=== PATIENT | female | born 1945 | race Caucasian/White ===

== ENCOUNTER 2016-07-27 07:49 | Day surgery (SDC) | payer MEDICARE, BC ==
[2016-07-27] MEDS ORDERED: Lactated Ringers 1,000 ML IV SCH (08:45)
[2016-07-27] MEDS ORDERED: Propofol 200 MG/20 ML SDV ONE (08:56)
[2016-07-27] MEDS ORDERED: fentaNYL 100 MCG/2 ML SDV ONE (08:56)
[2016-07-27 10:59] VITALS: BP 129/83
--- NOTE | 2016-07-28 07:24 | OR ---
DATE OF PROCEDURE: 07/28/2015 PREOPERATIVE DIAGNOSIS: Colon cancer screening. POSTOPERATIVE DIAGNOSES: Small distal rectal polyp. PROCEDURE PERFORMED: Colonoscopy to the cecum with biopsy resection of small distal rectal polyp. ANESTHESIA: IV anesthesia with monitored anesthesia care. INDICATION: This 70-year-old white female is referred for a colonoscopy for colon cancer screening. She says her last colonoscopic exam was done 11 years ago. I counseled her for the procedure including risks and alternatives, and she gave her informed consent to proceed. DESCRIPTION OF PROCEDURE: The patient was placed in the left lateral decubitus position. IV anesthesia was administered by the Anesthesia Service. Time-out was held. A rectal exam was performed, which was unremarkable. The flexible video Olympus colonoscope was introduced through her anus, up her rectum, and out her colon all way to the cecum. Once the cecum was reached, the scope was slowly withdrawn examining the mucosa throughout. No mucosal abnormalities were noted until we reached the distal rectum. Here we saw a small polyp, which was removed with a biopsy forceps. The scope was retroflexed in the rectum with the most distal rectum appearing unremarkable. The scope was straightened and removed. She tolerated the procedure well. Kwaku Meadows MD /[id number] MTDDonaldo
== END 2016-07-27 11:20 | disposition home or self-care (01) ==
LOC: JP.SDS 07:49
PROVIDERS: ATTEND Surgery
DX: Z12.11 Encounter for screening for malignant neoplasm of colon (principal); D12.8 Benign neoplasm of rectum
CPT/HCPCS: 45380; 88305; 88342; J2704; J3010; J7120

== ENCOUNTER 2019-09-25 15:30 | Inpatient (IN) | payer MEDICARE ==
--- NOTE | 2019-09-25 16:25 | EDM.PDOC ---
ED HPI GENERAL MEDICAL PROBLEM - General Chief Complaint: Cardiovascular Problem Stated Complaint: SHORTNESS OF BREATH Time Seen by Provider: 09/25/19 16:09 Source of Information: Reports: Patient History Limitations: Reports: No Limitations - History of Present Illness INITIAL COMMENTS - FREE TEXT/NARRATIVE: pt arrived with a history of being very sob with activity and then she gets burning chest pain, When she sits down the burning goes away. Onset: Gradual Duration: Hour(s): Location: Reports: Chest Quality: Reports: Burning Associated Symptoms: Reports: Chest Pain, Shortness of Breath Chest Pain Score (Numeric/FACES): 10 - Related Data Allergies Allergy/AdvReac Type Severity Reaction Status Date / Time No Known Allergies Allergy Verified 09/25/19 15:48 Home Meds: Home Meds Calcium Carbonate/Vitamin D3 [Calcium 600 + Vit D Tablet] 1,000 mg PO DAILY [History] Cranberry 1,000 mg PO Q48H 09/10/14 [History] Albuterol Sulfate [Albuterol Sulfate Hfa] 2 puff IH Q4HR 09/25/19 [History] Alendronate Sodium 10 mg PO DAILY 09/25/19 [History] Aspirin [Ecotrin EC] 81 mg PO DAILY 09/25/19 [History] atenoloL [Atenolol] 25 mg PO DAILY 09/25/19 [History] Past Medical History HEENT History: Reports: Cataract, Impaired Vision Cardiovascular History: Reports: Angina, Hypertension, SOB on Exertion Respiratory History: Reports: None, SOB Other Respiratory History: ? COPD Gastrointestinal History: Reports: Colon Polyp Genitourinary History: Reports: None IN[employer] INSPECTOR History: Reports: Musculoskeletal History: Reports: Osteoporosis Neurological History: Reports: None Psychiatric History: Reports: None Endocrine/Metabolic History: Reports: None Other Endocrine/Metabolic History: "Thyroid might be producing to much hormone" Hematologic History: Reports: None Immunologic History: Reports: None Oncologic (Cancer) History: Reports: None Dermatologic History: Reports: None - Infectious Disease History Infectious Disease History: Reports: Chicken Pox, Mumps - Past Surgical History Head Surgeries/Procedures: Reports: None Cardiovascular Surgical History: Reports: None GI Surgical History: Reports: Colonoscopy, Polypectomy Endocrine Surgical History: Reports: None Other Endocrine Surgeries/Procedures: thyroid ultrasound 09/24/2019 Neurological Surgical History: Reports: None Musculoskeletal Surgical History: Reports: None Oncologic Surgical History: Reports: None Dermatological Surgical History: Reports: None Social & Family History - Family History Family Medical History: Noncontributory - Tobacco Use Smoking Status *Q: Never Smoker - Caffeine Use Caffeine Use: Reports: Coffee Caffeine Use Comment: none for the past week - Recreational Drug Use Recreational Drug Use: No ED ROS GENERAL - Review of Systems Review Of Systems: See Below Constitutional: Reports: No Symptoms HEENT: Reports: No Symptoms Respiratory: Reports: Shortness of Breath, Other (very sob with activity. ) Cardiovascular: Reports: Chest Pain, Other ( after exercise pt gets burning chest pain. ) Endocrine: Reports: Other (history of possible hyperthyroidism. ) GI/Abdominal: Reports: No Symptoms : Reports: No Symptoms Musculoskeletal: Reports: No Symptoms Skin: Reports: No Symptoms Neurological: Reports: No Symptoms Psychiatric: Reports: Anxiety Hematologic/Lymphatic: Reports: No Symptoms ED EXAM, GENERAL - Physical Exam Exam: See Below Free Text/Narrative:: pt arrived with a history of sob with activity. She had an episode today where she felt like she was going to pass out. After she exercises she develops burning chest pain. She has noted that her pulse is quite rapid after exercise. She has not had sustained chest pain. If she rests she states the pain goes away. Exam Limited By: No Limitations General Appearance: Alert, Anxious, Moderate Distress Ears: Normal TMs Nose: Normal Inspection Throat/Mouth: Normal Inspection Head: Atraumatic Neck: Normal Inspection Respiratory/Chest: Decreased Breath Sounds, Other (no definite wheezing. ) Cardiovascular: Regular Rate, Rhythm, Tachycardia GI/Abdominal: Soft, Non-Tender (Female) Exam: Deferred Rectal (Female) Exam: Deferred Back Exam: Normal Inspection Extremities: Normal Inspection Neurological: Alert, Oriented, Normal Cognition Psychiatric: Normal Affect Course - Vital Signs Last Recorded V/S: Last Vital Signs Temp 36.6 C 09/27/19 06:00 Pulse 90 09/27/19 14:50 Resp 16 09/27/19 14:50 BP 113/74 09/27/19 14:50 Pulse Ox 94 L 09/27/19 14:50 Orthostatic Blood Pressure [ 147/90 Standing] Orthostatic Blood Pressure [ 139/92 Sitting] Orthostatic Blood Pressure [ 145/90 Supine] - Orders/Labs/Meds Orders: Medication Orders Acetaminophen (Tylenol) 650 mg PO Q4H PRN PRN Reason: Pain (Mild 1-3)/fever Albuterol (Proventil Neb Soln) 2.5 mg NEB Q4H PRN PRN Reason: Shortness Of Breath/wheezing Aspirin (Halfprin) 81 mg PO DAILY [facility] Last Admin: 09/27/19 08:04 Dose: 81 mg Admin: 09/26/19 08:36 Dose: 81 mg Atenolol (Tenormin) 25 mg PO DAILY [facility] Last Admin: 09/27/19 08:04 Dose: 25 mg Admin: 09/26/19 08:36 Dose: 25 mg Lorazepam (Ativan) 0.5 mg IVPUSH Q4H PRN PRN Reason: Nausea/Vomiting Magnesium Hydroxide (Milk Of Magnesia) 30 ml PO Q12H PRN PRN Reason: Constipation Melatonin (Melatonin) 9 mg PO BEDTIME PRN PRN Reason: sleep Ondansetron HCl (Zofran Odt) 4 mg PO Q6H PRN PRN Reason: Nausea able to take PO Ondansetron HCl (Zofran) 4 mg IV Q6H PRN PRN Reason: Nausea/Vomiting Rivaroxaban (Xarelto) 15 mg PO ONETIME ONE Stop: 09/27/19 19:01 Last Admin: 09/27/19 18:04 Dose: 15 mg Rivaroxaban (Xarelto) 15 mg PO BID [facility] Senna/Docusate Sodium (Senna Plus) 1 tab PO BID PRN PRN Reason: Constipation Sodium Chloride (Saline Flush) 10 ml FLUSH ASDIRECTED PRN PRN Reason: Keep Vein Open Last Admin: 09/25/19 17:14 Dose: 10 ml Labs: Laboratory Tests 09/25/19 09/25/19 09/25/19 Range/Units 16:15 16:16 16:16 WBC 10.3 (4.5-11.0) K/uL RBC 4.17 (3.30-5.50) M/uL Hgb 13.1 (12.0-15.0) g/dL Hct 39.7 (36.0-48.0) % MCV 95 (80-98) fL MCH 31 (27-31) pg MCHC 33 (32-36) % Plt Count 325 (150-400) K/uL Neut % (Auto) 76 H (36-66) % Lymph % (Auto) 14 L (24-44) % [place] % (Auto) 8 H (2-6) % Eos % (Auto) 1 L (2-4) % Baso % (Auto) 2 H (0-1) % PT 12.2 H (9.5-12.0) sec INR 1.14 (0.80-1.20) APTT 25.7 L (27.0-36.0) sec D-Dimer, Quantitative (0.0-400.0) ng/mL Sodium 141 (140-148) mmol/L Potassium 3.7 (3.6-5.2) mmol/L Chloride 107 (100-108) mmol/L Carbon Dioxide 24 (21-32) mmol/L Anion Gap 10.5 (5.0-14.0) mmol/L BUN 22 H (7-18) mg/dL Creatinine 1.1 H (0.6-1.0) mg/dL Est Cr Clr Drug Dosing 36.02 mL/min Estimated GFR (MDRD) 49 L (>60) Glucose 100 (74-106) mg/dL Calcium 8.3 L (8.5-10.1) mg/dL Total Bilirubin 0.4 (0.2-1.0) mg/dL AST 71 H (15-37) U/L ALT 112 H (12-78) U/L Alkaline Phosphatase 102 (46-116) U/L Troponin I (0.000-0.056) ng/mL NT-Pro-B Natriuret Pep (5-125) pg/mL Total Protein 6.3 L (6.4-8.2) g/dL Albumin 3.0 L (3.4-5.0) g/dL Globulin 3.3 (2.3-3.5) g/dL Albumin/Globulin Ratio 0.9 L (1.2-2.2) Free T3 (2.18-3.98) pg/dL TSH, Ultra Sensitive 0.013 L (0.358-3.740) uIU/mL Urine Color (YELLOW) Urine Appearance (CLEAR) Urine pH (5.0-8.0) Ur Specific [place] (1.008-1.030) Urine Protein (NEGATIVE) mg/dL Urine Glucose (UA) (NEGATIVE) mg/dL Urine Ketones (NEGATIVE) mg/dL Urine Occult Blood (NEGATIVE) Urine Nitrite (NEGATIVE) Urine Bilirubin (NEGATIVE) Urine Urobilinogen (0.2-1.0) EU/dL Ur Leukocyte Esterase (NEGATIVE) Urine RBC (0-5) Urine WBC (0-5) Ur Epithelial Cells Amorphous Sediment Urine Bacteria Urine Mucus 09/25/19 09/25/19 09/25/19 Range/Units 16:16 16:25 16:45 WBC (4.5-11.0) K/uL RBC (3.30-5.50) M/uL Hgb (12.0-15.0) g/dL Hct (36.0-48.0) % MCV (80-98) fL MCH (27-31) pg MCHC (32-36) % Plt Count (150-400) K/uL Neut % (Auto) (36-66) % Lymph % (Auto) (24-44) % [place] % (Auto) (2-6) % Eos % (Auto) (2-4) % Baso % (Auto) (0-1) % PT (9.5-12.0) sec INR (0.80-1.20) APTT (27.0-36.0) sec D-Dimer, Quantitative 2920 H (0.0-400.0) ng/mL Sodium (140-148) mmol/L Potassium (3.6-5.2) mmol/L Chloride (100-108) mmol/L Carbon Dioxide (21-32) mmol/L Anion Gap (5.0-14.0) mmol/L BUN (7-18) mg/dL Creatinine (0.6-1.0) mg/dL Est Cr Clr Drug Dosing mL/min Estimated GFR (MDRD) (>60) Glucose (74-106) mg/dL Calcium (8.5-10.1) mg/dL Total Bilirubin (0.2-1.0) mg/dL AST (15-37) U/L ALT (12-78) U/L Alkaline Phosphatase (46-116) U/L Troponin I 0.047 (0.000-0.056) ng/mL NT-Pro-B Natriuret Pep (5-125) pg/mL Total Protein (6.4-8.2) g/dL Albumin (3.4-5.0) g/dL Globulin (2.3-3.5) g/dL Albumin/Globulin Ratio (1.2-2.2) Free T3 (2.18-3.98) pg/dL TSH, Ultra Sensitive (0.358-3.740) uIU/mL Urine Color Yellow (YELLOW) Urine Appearance Clear (CLEAR) Urine pH 5.5 (5.0-8.0) Ur Specific [place] >= 1.030 (1.008-1.030) Urine Protein 30 H (NEGATIVE) mg/dL Urine Glucose (UA) Negative (NEGATIVE) mg/dL Urine Ketones Negative (NEGATIVE) mg/dL Urine Occult Blood Negative (NEGATIVE) Urine Nitrite Negative (NEGATIVE) Urine Bilirubin Negative (NEGATIVE) Urine Urobilinogen 0.2 (0.2-1.0) EU/dL Ur Leukocyte Esterase Trace H (NEGATIVE) Urine RBC Not seen (0-5) Urine WBC 0-5 (0-5) Ur Epithelial Cells Few Amorphous Sediment Few Urine Bacteria Not seen Urine Mucus Not seen 09/25/19 09/25/19 Range/Units 17:00 17:07 WBC (4.5-11.0) K/uL RBC (3.30-5.50) M/uL Hgb (12.0-15.0) g/dL Hct (36.0-48.0) % MCV (80-98) fL MCH (27-31) pg MCHC (32-36) % Plt Count (150-400) K/uL Neut % (Auto) (36-66) % Lymph % (Auto) (24-44) % [place] % (Auto) (2-6) % Eos % (Auto) (2-4) % Baso % (Auto) (0-1) % PT (9.5-12.0) sec INR (0.80-1.20) APTT (27.0-36.0) sec D-Dimer, Quantitative (0.0-400.0) ng/mL Sodium (140-148) mmol/L Potassium (3.6-5.2) mmol/L Chloride (100-108) mmol/L Carbon Dioxide (21-32) mmol/L Anion Gap (5.0-14.0) mmol/L BUN (7-18) mg/dL Creatinine (0.6-1.0) mg/dL Est Cr Clr Drug Dosing mL/min Estimated GFR (MDRD) (>60) Glucose (74-106) mg/dL Calcium (8.5-10.1) mg/dL Total Bilirubin (0.2-1.0) mg/dL AST (15-37) U/L ALT (12-78) U/L Alkaline Phosphatase (46-116) U/L Troponin I (0.000-0.056) ng/mL NT-Pro-B Natriuret Pep 5889 H (5-125) pg/mL Total Protein (6.4-8.2) g/dL Albumin (3.4-5.0) g/dL Globulin (2.3-3.5) g/dL Albumin/Globulin Ratio (1.2-2.2) Free T3 3.85 (2.18-3.98) pg/dL TSH, Ultra Sensitive (0.358-3.740) uIU/mL Urine Color (YELLOW) Urine Appearance (CLEAR) Urine pH (5.0-8.0) Ur Specific [place] (1.008-1.030) Urine Protein (NEGATIVE) mg/dL Urine Glucose (UA) (NEGATIVE) mg/dL Urine Ketones (NEGATIVE) mg/dL Urine Occult Blood (NEGATIVE) Urine Nitrite (NEGATIVE) Urine Bilirubin (NEGATIVE) Urine Urobilinogen (0.2-1.0) EU/dL Ur Leukocyte Esterase (NEGATIVE) Urine RBC (0-5) Urine WBC (0-5) Ur Epithelial Cells Amorphous Sediment Urine Bacteria Urine Mucus Meds: Medications Generic Name Dose Route Start Last Admin Trade Name Freq PRN Reason Stop Dose Admin Acetaminophen 650 mg 09/25/19 18:31 Tylenol PO Q4H PRN Pain (Mild 1-3)/fever Albuterol 2.5 mg 09/25/19 18:31 Proventil Neb Soln NEB Q4H PRN Shortness Of Breath/wheezing Aspirin 81 mg 09/26/19 09:00 09/27/19 08:04 Halfprin PO 81 mg DAILY TENZIN Administration Atenolol 25 mg 09/26/19 09:00 09/27/19 08:04 Tenormin PO 25 mg DAILY [facility]IN Administration Lorazepam 0.5 mg 09/25/19 18:31 Ativan IVPUSH Q4H PRN Nausea/Vomiting Magnesium Hydroxide 30 ml 09/25/19 18:31 Milk Of Magnesia PO Q12H PRN Constipation Melatonin 9 mg 09/25/19 18:31 Melatonin PO BEDTIME PRN sleep Ondansetron HCl 4 mg 09/25/19 18:31 Zofran Odt PO Q6H PRN Nausea able to take PO Ondansetron HCl 4 mg 09/25/19 18:31 Zofran IV Q6H PRN Nausea/Vomiting Rivaroxaban 15 mg 09/27/19 19:00 09/27/19 18:04 Xarelto PO 09/27/19 19:01 15 mg ONETIME ONE Administration Rivaroxaban 15 mg 09/28/19 09:00 Xarelto PO BID [facility]ENZIN Senna/Docusate Sodium 1 tab 09/25/19 18:31 Senna Plus PO BID PRN Constipation Sodium Chloride 10 ml 09/25/19 16:54 09/25/19 17:14 Saline Flush FLUSH 10 ml ASDIRECTED PRN Administration Keep Vein Open Discontinued Medications Generic Name Dose Route Start Last Admin Trade Name Freq PRN Reason Stop Dose Admin Heparin Sodium (Porcine) 4,500 units 09/25/19 17:48 09/25/19 18:01 Heparin Sodium IVPUSH 09/25/19 17:49 4,500 units .BOLUS ONE Administration Heparin Sodium (Porcine) Confirm 09/26/19 07:03 09/26/19 07:17 Heparin Sodium Administered 09/26/19 07:04 Not Given Dose 5,000 units .ROUTE .STK-MED ONE Heparin Sodium (Porcine) 1,000 units 09/26/19 07:07 09/26/19 07:23 Heparin Sodium IVPUSH 09/26/19 07:08 1,000 units .BOLUS ONE Administration Sodium Chloride 100 mls @ 3 mls/sec 09/25/19 17:00 09/25/19 17:14 Normal Saline IV 3 mls/sec ASDIRECTED TENZIN Administration Heparin Sodium/Dextrose 25,000 units in 500 mls @ 20.304 mls/hr 09/25/19 18: 00 09/27/19 07:44 Heparin 25,000 Units In D5w 500 Ml IV 09/27/19 17:00 20 units/kg/hr TITRATE TENZIN 22.56 mls/hr Titration Protocol 18 UNITS/KG/HR Sodium Chloride 1,000 mls @ 25 mls/hr 09/25/19 18:31 09/25/19 21:33 Normal Saline IV 09/27/19 17:00 25 mls/hr ASDIRECTED TENZIN Administration Iopamidol 100 ml 09/25/19 17:15 09/25/19 17:20 Isovue-370 (76%) IV 100 ml . DIRECTED TENZIN Administration - Re-Assessments/Exams Free Text/Narrative Re-Assessment/Exam: 09/25/19 17:31 pt has a low tsh and in the past has been hyperthyroid. She had a recent chest xray which suggested copd. She has a normal trop but slightly borderline. Her ekg shows inverted t waves laterally. She is presently pain free. her ddimer is very high. Her regular Dr did send her here because she had a concern about a PE. Pt does have up liver enzymes. 09/25/19 17:43 lung scan is positive for a high load of clot causing a rt heart strain. She has changes on her ekg with inverted t waves anterolaterally. Her oxgenation is good. pt has been borderline tachcardia. She is comfortable at rest at this time. 09/27/19 18:06 Departure - Departure Time of Disposition: 17:45 Disposition: Home, Self-Care 01 Condition: Fair Clinical Impression: Cardiac ischemia, Dehydration, Hyperthyroidism, Nodular thyroid disease, Elevated liver enzymes Pulmonary emboli Qualifiers: Pulmonary embolism type: multiple subsegmental (without acute cor pulmonale) Qualified Code(s): I26.94 - Multiple subsegmental pulmonary emboli without acute cor pulmonale Sepsis Event Note - Evaluation Sepsis Screening Result: No Definite Risk - Focused Exam Date Exam was Performed: 09/27/19 Time Exam was Performed: 18:08
[2019-09-25] MEDS ORDERED: Sodium Chloride 0.9% 10 ML Syringe FLUSH PRN (16:54)
[2019-09-25] MEDS ORDERED: Iopamidol 612 MG/ML 100 ML Bottle IV SCH (17:00)
[2019-09-25] MEDS ORDERED: Sodium Chloride 0.9% 100 ML IV SCH (17:00)
[2019-09-25] MEDS ORDERED: Iopamidol 755 Mg/ML 100 ML Bottle IV SCH (17:15)
--- NOTE | 2019-09-25 17:40 | CRLCT ---
INDICATION: Dyspnea and chest pain with clinical signs and symptoms of pulmonary embolus. COMPARISON: None TECHNIQUE: : CT examination of the chest was performed with the uneventful intravenous administration of 100 cc of Isovue 3 7 while thin axial sections were obtained from above the apices of the lungs to the lung bases. Please note that all CT scans at this facility use dose modulation, iterative reconstruction, and/or weight-based dosing when appropriate to reduce radiation dose to as low as reasonably achievable. FINDINGS: : HEART and MEDIASTINUM: Heart is mildly enlarged. The right heart is particularly enlarged and there is clearly bowing of the septum to the left and engorgement of the intrahepatic cava consistent with right heart strain PULMONARY ARTERIAL CIRCULATION: High clot burden pulmonary embolus involving all lobes but most affecting the lower lobes. LUNGS: Patchy opacities probably related atelectasis PLEURAL SPACES: There is no pleural effusion, pneumothorax or pleural based mass. VISUALIZED UPPER ABDOMEN: The limited visualized upper abdominal structures appear normal. OSSEOUS STRUCTURES: Age-appropriate appearance. No acute fracture or destructive process. TUBES and LINES: None. IMPRESSION: 1. High clot burden pulmonary embolus involving all lobes but most affecting the lower lobes. 2. Significant-appearing CT findings of right heart strain 3. Aside from patchy atelectasis, the lungs are unremarkable. The pleural spaces are within normal limits. 4. I discussed the above findings with Dr. Shaye Bey at 5:35 p.m. on September 25, [address] note that all CT scans at this facility use dose modulation, iterative reconstruction, and/or weight-based dosing when appropriate to reduce radiation dose to as low as reasonably achievable. Dictated by Rafael Christian MD @ Sep 25 2019 5:33PM Signed by Dr. Rafael Christian @ Sep 25 2019 5:39PM
[2019-09-25] MEDS ORDERED: Heparin Sodium 5,000 Units/ML Vial IVPUSH ONE (17:48)
[2019-09-25] MEDS: Heparin Sodium/D5W 25,000 UNITS/500 ML BAG IV SCH (18:04)
--- NOTE | 2019-09-25 18:24 | PCM.HP.2 ---
H&P History of Present Illness - General Date of Service: 09/25/19 Admit Problem/Dx: Admission Diagnosis/Problem Admission Diagnosis/Problem Pulmonary embolism Source of Information: Patient, Provider History Limitations: Reports: No Limitations - History of Present Illness Initial Comments - Free Text/Narative: CC: i had burning across my chest HPI: Marj presents to the ER with progressive dyspnea with exertion as well as a burning sensation across her chest. She thinks symptoms have been present for several months but they have been slowly getting worse. She is developing the burning sensation and dyspnea with smaller and smaller amounts of activity. Today after climbing 1 flight of stairs she had moderately severe burning pain across her chest as well as significant dyspnea and dizziness and presyncope. Symptoms do resolve fairly quickly when she sits down and takes a break. She has not had any fevers or chills. She has not been coughing. No abdominal pain or nausea. She is being worked up for hyperthyroidism and does note an increase in her essential tremor but has not had weight loss, palpitations, insomnia or anxiety. She has no history of pain in her calf muscles, surgery or prolonged period of immobility. Work-up in the emergency room revealed fairly normal laboratory studies with the exception of her very low TSH. A CT pulmonary angiogram revealed bilateral pulmonary emboli with evidence for right heart strain. A heparin infusion has been started and she will be admitted for further management. Chest Pain Score (Numeric/FACES): 10 - Related Data Allergies/Adverse Reactions: Allergies Allergy/AdvReac Type Severity Reaction Status Date / Time No Known Allergies Allergy Verified 09/25/19 15:48 Home Medications: Home Meds Calcium Carbonate/Vitamin D3 [Calcium 600 + Vit D Tablet] 1,000 mg PO DAILY [History] Cranberry 1,000 mg PO Q48H 09/10/14 [History] Albuterol Sulfate [Albuterol Sulfate Hfa] 2 puff IH Q4HR 09/25/19 [History] Alendronate Sodium 10 mg PO DAILY 09/25/19 [History] Aspirin [Ecotrin EC] 81 mg PO DAILY 09/25/19 [History] atenoloL [Atenolol] 25 mg PO DAILY 09/25/19 [History] Past Medical History HEENT History: Reports: Cataract, Impaired Vision Cardiovascular History: Reports: Angina, Hypertension, SOB on Exertion Respiratory History: Reports: None, SOB Other Respiratory History: ? COPD Gastrointestinal History: Reports: Colon Polyp Genitourinary History: Reports: None BRASS PICKLER History: Reports: Musculoskeletal History: Reports: Osteoporosis Neurological History: Reports: None Other Neuro History: Benign essential tremor Psychiatric History: Reports: None Endocrine/Metabolic History: Reports: None Other Endocrine/Metabolic History: "Thyroid might be producing to much hormone" Hematologic History: Reports: None Immunologic History: Reports: None Oncologic (Cancer) History: Reports: None Dermatologic History: Reports: None - Infectious Disease History Infectious Disease History: Reports: Chicken Pox, Mumps - Past Surgical History Head Surgeries/Procedures: Reports: None Cardiovascular Surgical History: Reports: None GI Surgical History: Reports: Colonoscopy, Polypectomy Endocrine Surgical History: Reports: None Other Endocrine Surgeries/Procedures: thyroid ultrasound 09/24/2019 Neurological Surgical History: Reports: None Musculoskeletal Surgical History: Reports: None Oncologic Surgical History: Reports: None Dermatological Surgical History: Reports: None Social & Family History - Family History Family Medical History: Noncontributory - Tobacco Use Smoking Status *Q: Never Smoker - Caffeine Use Caffeine Use: Reports: Coffee Caffeine Use Comment: none for the past week - Recreational Drug Use Recreational Drug Use: No H&P Review of Systems - Review of Systems: Review Of Systems: See Below Free Text/Narrative: A complete 12 point review of systems was obtained. Pertinent positives and negatives are noted in the history of present illness. All other systems were reviewed and were negative except as noted. Exam - Exam Exam: See Below - Vital Signs Vital Signs: Last Vital Signs Temp 36.1 C 09/25/19 15:36 Pulse 77 09/25/19 17:32 Resp 22 H 09/25/19 17:32 BP 147/88 H 09/25/19 17:32 Pulse Ox 95 09/25/19 17:32 Orthostatic Blood Pressure [ 147/90 Standing] Orthostatic Blood Pressure [ 139/92 Sitting] Orthostatic Blood Pressure [ 145/90 Supine] Weight: 56.4 kg - Exam Quality Assessment: No: Supplemental Oxygen General: Alert, Oriented, Cooperative. No: Mild Distress HEENT: Conjunctiva Clear, Mucosa Moist & Ste[place]. No: Scleral Icterus Neck: Supple, Trachea Midline. No: Lymphadenopathy, Thyromegaly Lungs: Clear to Auscultation, Normal Respiratory Effort Cardiovascular: Regular Rate, Regular Rhythm. No: Systolic Murmur GI/Abdominal Exam: Normal Bowel Sounds, Soft, Non-Tender, No Distention Back Exam: Normal Inspection, Full Range of Motion Extremities: No Pedal Edema. No: Amina's Sign, Increased Warmth Peripheral Pulses: 2+: Dorsalis Pedis (L), Dorsalis Pedis (R) Skin: Warm, Dry Neuro Extensive - Mental Status: Alert, Oriented x3, Nl Response to Commands Neuro Extensive - Motor, Sensory, Reflexes: Tremor. No: Dysarthria, Abnormal Motor Psychiatric: Alert, Normal Affect - Patient Data Lab Results Last 24 hrs: Laboratory Results - last 24 hr 09/25/19 09/25/19 09/25/19 Range/Units 16:15 16:16 16:16 WBC 10.3 (4.5-11.0) K/uL RBC 4.17 (3.30-5.50) M/uL Hgb 13.1 (12.0-15.0) g/dL Hct 39.7 (36.0-48.0) % MCV 95 (80-98) fL MCH 31 (27-31) pg MCHC 33 (32-36) % Plt Count 325 (150-400) K/uL Neut % (Auto) 76 H (36-66) % Lymph % (Auto) 14 L (24-44) % [place] % (Auto) 8 H (2-6) % Eos % (Auto) 1 L (2-4) % Baso % (Auto) 2 H (0-1) % PT 12.2 H (9.5-12.0) sec INR 1.14 (0.80-1.20) APTT 25.7 L (27.0-36.0) sec D-Dimer, Quantitative (0.0-400.0) ng/mL Sodium 141 (140-148) mmol/L Potassium 3.7 (3.6-5.2) mmol/L Chloride 107 (100-108) mmol/L Carbon Dioxide 24 (21-32) mmol/L Anion Gap 10.5 (5.0-14.0) mmol/L BUN 22 H (7-18) mg/dL Creatinine 1.1 H (0.6-1.0) mg/dL Est Cr Clr Drug Dosing 36.02 mL/min Estimated GFR (MDRD) 49 L (>60) Glucose 100 (74-106) mg/dL Calcium 8.3 L (8.5-10.1) mg/dL Total Bilirubin 0.4 (0.2-1.0) mg/dL AST 71 H (15-37) U/L ALT 112 H (12-78) U/L Alkaline Phosphatase 102 (46-116) U/L Troponin I (0.000-0.056) ng/mL NT-Pro-B Natriuret Pep (5-125) pg/mL Total Protein 6.3 L (6.4-8.2) g/dL Albumin 3.0 L (3.4-5.0) g/dL Globulin 3.3 (2.3-3.5) g/dL Albumin/Globulin Ratio 0.9 L (1.2-2.2) Free T3 (2.18-3.98) pg/dL TSH, Ultra Sensitive 0.013 L (0.358-3.740) uIU/mL Urine Color (YELLOW) Urine Appearance (CLEAR) Urine pH (5.0-8.0) Ur Specific [place] (1.008-1.030) Urine Protein (NEGATIVE) mg/dL Urine Glucose (UA) (NEGATIVE) mg/dL Urine Ketones (NEGATIVE) mg/dL Urine Occult Blood (NEGATIVE) Urine Nitrite (NEGATIVE) Urine Bilirubin (NEGATIVE) Urine Urobilinogen (0.2-1.0) EU/dL Ur Leukocyte Esterase (NEGATIVE) Urine RBC (0-5) Urine WBC (0-5) Ur Epithelial Cells Amorphous Sediment Urine Bacteria Urine Mucus 09/25/19 09/25/19 09/25/19 Range/Units 16:16 16:25 16:45 WBC (4.5-11.0) K/uL RBC (3.30-5.50) M/uL Hgb (12.0-15.0) g/dL Hct (36.0-48.0) % MCV (80-98) fL MCH (27-31) pg MCHC (32-36) % Plt Count (150-400) K/uL Neut % (Auto) (36-66) % Lymph % (Auto) (24-44) % [place] % (Auto) (2-6) % Eos % (Auto) (2-4) % Baso % (Auto) (0-1) % PT (9.5-12.0) sec INR (0.80-1.20) APTT (27.0-36.0) sec D-Dimer, Quantitative 2920 H (0.0-400.0) ng/mL Sodium (140-148) mmol/L Potassium (3.6-5.2) mmol/L Chloride (100-108) mmol/L Carbon Dioxide (21-32) mmol/L Anion Gap (5.0-14.0) mmol/L BUN (7-18) mg/dL Creatinine (0.6-1.0) mg/dL Est Cr Clr Drug Dosing mL/min Estimated GFR (MDRD) (>60) Glucose (74-106) mg/dL Calcium (8.5-10.1) mg/dL Total Bilirubin (0.2-1.0) mg/dL AST (15-37) U/L ALT (12-78) U/L Alkaline Phosphatase (46-116) U/L Troponin I 0.047 (0.000-0.056) ng/mL NT-Pro-B Natriuret Pep (5-125) pg/mL Total Protein (6.4-8.2) g/dL Albumin (3.4-5.0) g/dL Globulin (2.3-3.5) g/dL Albumin/Globulin Ratio (1.2-2.2) Free T3 (2.18-3.98) pg/dL TSH, Ultra Sensitive (0.358-3.740) uIU/mL Urine Color Yellow (YELLOW) Urine Appearance Clear (CLEAR) Urine pH 5.5 (5.0-8.0) Ur Specific [place] >= 1.030 (1.008-1.030) Urine Protein 30 H (NEGATIVE) mg/dL Urine Glucose (UA) Negative (NEGATIVE) mg/dL Urine Ketones Negative (NEGATIVE) mg/dL Urine Occult Blood Negative (NEGATIVE) Urine Nitrite Negative (NEGATIVE) Urine Bilirubin Negative (NEGATIVE) Urine Urobilinogen 0.2 (0.2-1.0) EU/dL Ur Leukocyte Esterase Trace H (NEGATIVE) Urine RBC Not seen (0-5) Urine WBC 0-5 (0-5) Ur Epithelial Cells Few Amorphous Sediment Few Urine Bacteria Not seen Urine Mucus Not seen 09/25/19 09/25/19 Range/Units 17:00 17:07 WBC (4.5-11.0) K/uL RBC (3.30-5.50) M/uL Hgb (12.0-15.0) g/dL Hct (36.0-48.0) % MCV (80-98) fL MCH (27-31) pg MCHC (32-36) % Plt Count (150-400) K/uL Neut % (Auto) (36-66) % Lymph % (Auto) (24-44) % [place] % (Auto) (2-6) % Eos % (Auto) (2-4) % Baso % (Auto) (0-1) % PT (9.5-12.0) sec INR (0.80-1.20) APTT (27.0-36.0) sec D-Dimer, Quantitative (0.0-400.0) ng/mL Sodium (140-148) mmol/L Potassium (3.6-5.2) mmol/L Chloride (100-108) mmol/L Carbon Dioxide (21-32) mmol/L Anion Gap (5.0-14.0) mmol/L BUN (7-18) mg/dL Creatinine (0.6-1.0) mg/dL Est Cr Clr Drug Dosing mL/min Estimated GFR (MDRD) (>60) Glucose (74-106) mg/dL Calcium (8.5-10.1) mg/dL Total Bilirubin (0.2-1.0) mg/dL AST (15-37) U/L ALT (12-78) U/L Alkaline Phosphatase (46-116) U/L Troponin I (0.000-0.056) ng/mL NT-Pro-B Natriuret Pep 5889 H (5-125) pg/mL Total Protein (6.4-8.2) g/dL Albumin (3.4-5.0) g/dL Globulin (2.3-3.5) g/dL Albumin/Globulin Ratio (1.2-2.2) Free T3 3.85 (2.18-3.98) pg/dL TSH, Ultra Sensitive (0.358-3.740) uIU/mL Urine Color (YELLOW) Urine Appearance (CLEAR) Urine pH (5.0-8.0) Ur Specific [place] (1.008-1.030) Urine Protein (NEGATIVE) mg/dL Urine Glucose (UA) (NEGATIVE) mg/dL Urine Ketones (NEGATIVE) mg/dL Urine Occult Blood (NEGATIVE) Urine Nitrite (NEGATIVE) Urine Bilirubin (NEGATIVE) Urine Urobilinogen (0.2-1.0) EU/dL Ur Leukocyte Esterase (NEGATIVE) Urine RBC (0-5) Urine WBC (0-5) Ur Epithelial Cells Amorphous Sediment Urine Bacteria Urine Mucus Result Diagrams: 09/25/19 16:16 09/25/19 16:16 Imaging Impressions Last 24 hrs: CT pulmonary angiogram-images personally reviewed-bilateral pulmonary emboli with right heart strain. No saddle embolus. No mass, infiltrate or effusion. EKG INTERPRETATION EKG Date: 09/25/19 Rhythm: NSR Rate (Beats/Min): 88 [place]: LAD-Left [place] Deviation (LAFB) P-Wave: Present QRS: Normal ST-T: Normal EKG Interpretation Comments: inverted T waves in III and aVF as well as V3-V6. image personally reviewed Sepsis Event Note - Evaluation Sepsis Screening Result: No Definite Risk - Focused Exam Vital Signs: Vital Signs Temp Pulse Resp BP Pulse Ox 09/25/19 17:32 77 22 H 147/88 H 95 09/25/19 16:34 85 19 143/99 H 94 L 09/25/19 15:36 36.1 C 100 22 H 159/97 H 97 Date Exam was Performed: 09/25/19 Time Exam was Performed: 18:53 *Q Meaningful Use (ADM) - VTE Risk Assess *Q Each Risk Factor Represents 1 Point: None Total Score 1 Point Risk Factors: 0 Each Risk Factor Represents 2 Points: Age 60 - 74 Years Total Score 2 Point Risk Factors: 2 Each Risk Factor Represents 3 Points: History of DVT/PE Total Score 3 Point Risk Factors: 3 Each Risk Factor Represents 5 Points: None Total Score 5 Point Risk Factors: 0 Venous Thromboembolism Risk Factor Score *Q: 5 - Problem List (1) Pulmonary emboli SNOMED Code(s): 34916298 ICD Code: I26.99 - OTHER PULMONARY EMBOLISM WITHOUT ACUTE COR PULMONALE Status: Acute Current Visit: Yes Qualifiers: Pulmonary embolism type: multiple subsegmental (without acute cor pulmonale) Qualified Code(s): I26.94 - Multiple subsegmental pulmonary emboli without acute cor pulmonale (2) Hyperthyroidism SNOMED Code(s): 23653795 ICD Code: E05.90 - THYROTOXICOSIS, UNSP WITHOUT THYROTOXIC CRISIS OR STORM Status: Acute Current Visit: Yes Problem List Initiated/Reviewed/Updated: Yes Orders Last 24hrs: Active Orders 24 hr Category Date Time Status Patient Status Manage Transfer [TRANSFER] Routine ADT 09/25/19 18:17 Ordered EKG Documentation Completion [RC] ASDIRECTED Care 09/25/19 16:33 Active Orthostatic Vital Signs [RC] ASDIRECTED Care 09/25/19 16:28 Active Heparin Sodium/D5W [Heparin 25,000 Units in D5W 500 ML] Med 09/25/19 18:00 Active 25,000 units in 500 ml IV TITRATE Iopamidol [Isovue-370 (76%)] Med 09/25/19 17:15 Active 100 ml IV . DIRECTED Sodium Chloride 0.9% [Normal Saline] 100 ml Med 09/25/19 17:00 Active IV ASDIRECTED Sodium Chloride 0.9% [Saline Flush] Med 09/25/19 16:54 Active 10 ml FLUSH ASDIRECTED PRN Resuscitation Status Routine Resus Stat 09/25/19 18:18 Ordered EKG 12 Lead [EK] Routine Ther 09/25/19 16:33 Ordered Medication Orders Sodium Chloride (Normal Saline) 100 mls @ 3 mls/sec IV ASDIRECTED TENZIN Last Admin: 09/25/19 17:14 Dose: 3 mls/sec Heparin Sodium/Dextrose (Heparin 25,000 Units In D5w 500 Ml) 25,000 units in 500 mls @ 20.304 mls/hr IV TITRATE TENZIN; Protocol Last Admin: 09/25/19 18:04 Dose: 18 units/kg/hr, 20.304 mls/hr Iopamidol (Isovue-370 (76%)) 100 ml IV . DIRECTED TENZIN Last Admin: 09/25/19 17:20 Dose: 100 ml Sodium Chloride (Saline Flush) 10 ml FLUSH ASDIRECTED PRN PRN Reason: Keep Vein Open Last Admin: 09/25/19 17:14 Dose: 10 ml Assessment/Plan Comment:: ASSESSMENT AND PLAN - Bilateral pulmonary emboli-complicated by evidence for right heart strain on CT scan. Surprisingly her blood pressure is normal and her heart rate is only borderline tachycardic. Symptoms have been present for quite some time but worsening. Unclear if this is acute on chronic or if she now has acute pulmonary emboli on top of a chronic stable angina. I suspect that the clots have been present for some time but increasing in quantity. No history of DVT either personally or in her family. -Heparin infusion per protocol -Transition to oral medication in 48 hours -Cardiac monitoring -Pulse oximetry Hypothyroidism-very recently diagnosed and work-up is still in progress. Outpatient records will need to be reviewed to see if there is additional work- up necessary during the hospital stay. She does not have significant symptoms at this time other than a tremor. -Continue beta-miladys Maintenance issues - - DVT prophylaxis -heparin infusion - GI prophylaxis -not indicated - Nutrition -regular diet - [place] catheter -not indicated CODE STATUS -full code Admission justification -this patient will be admitted for inpatient services and is medically appropriate meeting medical necessity for inpatient admission as outlined in my documentation. I reasonably expect the patient will require inpatient services that span a period time over 2 midnights. I reasonably expect this patient to be discharged or transferred within 96 hours after admission to the [facility]. Disposition -I would anticipate discharge home after the hospital stay Primary care physician -Dr. Kateryna Diaz M.D. - Mortality Measure Prognosis:: Good
[2019-09-25] MEDS ORDERED: Acetaminophen 325 MG Tab PO PRN (18:31)
[2019-09-25] MEDS ORDERED: Albuterol 0.083% 2.5 MG/3 ML Neb Soln NEB PRN (18:31)
[2019-09-25] MEDS ORDERED: Melatonin 3 MG Tab PO PRN (18:31)
[2019-09-25] MEDS ORDERED: Magnesium Hydroxide 400 MG/5 ML Susp 30 ML Cup PO PRN (18:31)
[2019-09-25] MEDS ORDERED: Sodium Chloride 0.9% 1,000 ML IV SCH (18:31)
[2019-09-25] MEDS ORDERED: Ondansetron 4 MG/2 ML SDV IV PRN (18:31)
[2019-09-25] MEDS ORDERED: LORazepam 2 MG/ML SDV IVPUSH PRN (18:31)
[2019-09-25] MEDS ORDERED: Ondansetron 4 MG Tab.DIS PO PRN (18:31)
[2019-09-26] MEDS ORDERED: Heparin Sodium 5,000 Units/ML Vial ONE (07:03)
[2019-09-26] MEDS ORDERED: Heparin Sodium 5,000 Units/ML Vial IVPUSH ONE (07:07)
[2019-09-26] MEDS: Atenolol 25 MG Tab PO SCH (08:36)
[2019-09-26] MEDS: Aspirin 81 MG Tab.EC PO SCH (08:36)
--- NOTE | 2019-09-26 09:32 | PCM.PN ---
- General Info Date of Service: 09/26/19 Subjective Update: No acute events overnight. Vital signs have been stable. Tolerating heparin infusion so far with no evidence for bleeding. Minimal activity around the room does lead to dyspnea but she has not had any burning chest pain. No nausea. Vital signs are all stable. Appetite has been good. Functional Status: Reports: Pain Controlled, Ambulating - Review of Systems Cardiovascular: Reports: Dyspnea on Exertion. Denies: Chest Pain - Patient Data Vitals - Most Recent: Last Vital Signs Temp 36.2 C 09/26/19 08:00 Pulse 91 09/26/19 08:36 Resp 24 H 09/26/19 08:00 BP 127/82 09/26/19 08:36 Pulse Ox 93 L 09/26/19 08:00 Orthostatic Blood Pressure [ 147/90 Standing] Orthostatic Blood Pressure [ 139/92 Sitting] Orthostatic Blood Pressure [ 145/90 Supine] Weight - Most Recent: 59.421 kg I&O - Last 24 Hours: Intake & Output 09/25/19 09/26/19 09/26/19 22:59 06:59 14:59 Intake Total 60 637 Output Total 300 300 Balance -240 337 Lab Results Last 24 Hours: Laboratory Results - last 24 hr 09/25/19 09/25/19 09/25/19 Range/Units 16:15 16:16 16:16 WBC 10.3 (4.5-11.0) K/uL RBC 4.17 (3.30-5.50) M/uL Hgb 13.1 (12.0-15.0) g/dL Hct 39.7 (36.0-48.0) % MCV 95 (80-98) fL MCH 31 (27-31) pg MCHC 33 (32-36) % Plt Count 325 (150-400) K/uL Neut % (Auto) 76 H (36-66) % Lymph % (Auto) 14 L (24-44) % Cassia % (Auto) 8 H (2-6) % Eos % (Auto) 1 L (2-4) % Baso % (Auto) 2 H (0-1) % PT 12.2 H (9.5-12.0) sec INR 1.14 (0.80-1.20) APTT 25.7 L (27.0-36.0) sec D-Dimer, Quantitative (0.0-400.0) ng/mL Sodium 141 (140-148) mmol/L Potassium 3.7 (3.6-5.2) mmol/L Chloride 107 (100-108) mmol/L Carbon Dioxide 24 (21-32) mmol/L Anion Gap 10.5 (5.0-14.0) mmol/L BUN 22 H (7-18) mg/dL Creatinine 1.1 H (0.6-1.0) mg/dL Est Cr Clr Drug Dosing 36.02 mL/min Estimated GFR (MDRD) 49 L (>60) Glucose 100 (74-106) mg/dL Calcium 8.3 L (8.5-10.1) mg/dL Total Bilirubin 0.4 (0.2-1.0) mg/dL AST 71 H (15-37) U/L ALT 112 H (12-78) U/L Alkaline Phosphatase 102 (46-116) U/L Troponin I (0.000-0.056) ng/mL NT-Pro-B Natriuret Pep (5-125) pg/mL Total Protein 6.3 L (6.4-8.2) g/dL Albumin 3.0 L (3.4-5.0) g/dL Globulin 3.3 (2.3-3.5) g/dL Albumin/Globulin Ratio 0.9 L (1.2-2.2) Free T3 (2.18-3.98) pg/dL TSH, Ultra Sensitive 0.013 L (0.358-3.740) uIU/mL Urine Color (YELLOW) Urine Appearance (CLEAR) Urine pH (5.0-8.0) Ur Specific [place] (1.008-1.030) Urine Protein (NEGATIVE) mg/dL Urine Glucose (UA) (NEGATIVE) mg/dL Urine Ketones (NEGATIVE) mg/dL Urine Occult Blood (NEGATIVE) Urine Nitrite (NEGATIVE) Urine Bilirubin (NEGATIVE) Urine Urobilinogen (0.2-1.0) EU/dL Ur Leukocyte Esterase (NEGATIVE) Urine RBC (0-5) Urine WBC (0-5) Ur Epithelial Cells Amorphous Sediment Urine Bacteria Urine Mucus 09/25/19 09/25/19 09/25/19 Range/Units 16:16 16:25 16:45 WBC (4.5-11.0) K/uL RBC (3.30-5.50) M/uL Hgb (12.0-15.0) g/dL Hct (36.0-48.0) % MCV (80-98) fL MCH (27-31) pg MCHC (32-36) % Plt Count (150-400) K/uL Neut % (Auto) (36-66) % Lymph % (Auto) (24-44) % Cassia % (Auto) (2-6) % Eos % (Auto) (2-4) % Baso % (Auto) (0-1) % PT (9.5-12.0) sec INR (0.80-1.20) APTT (27.0-36.0) sec D-Dimer, Quantitative 2920 H (0.0-400.0) ng/mL Sodium (140-148) mmol/L Potassium (3.6-5.2) mmol/L Chloride (100-108) mmol/L Carbon Dioxide (21-32) mmol/L Anion Gap (5.0-14.0) mmol/L BUN (7-18) mg/dL Creatinine (0.6-1.0) mg/dL Est Cr Clr Drug Dosing mL/min Estimated GFR (MDRD) (>60) Glucose (74-106) mg/dL Calcium (8.5-10.1) mg/dL Total Bilirubin (0.2-1.0) mg/dL AST (15-37) U/L ALT (12-78) U/L Alkaline Phosphatase (46-116) U/L Troponin I 0.047 (0.000-0.056) ng/mL NT-Pro-B Natriuret Pep (5-125) pg/mL Total Protein (6.4-8.2) g/dL Albumin (3.4-5.0) g/dL Globulin (2.3-3.5) g/dL Albumin/Globulin Ratio (1.2-2.2) Free T3 (2.18-3.98) pg/dL TSH, Ultra Sensitive (0.358-3.740) uIU/mL Urine Color Yellow (YELLOW) Urine Appearance Clear (CLEAR) Urine pH 5.5 (5.0-8.0) Ur Specific [place] >= 1.030 (1.008-1.030) Urine Protein 30 H (NEGATIVE) mg/dL Urine Glucose (UA) Negative (NEGATIVE) mg/dL Urine Ketones Negative (NEGATIVE) mg/dL Urine Occult Blood Negative (NEGATIVE) Urine Nitrite Negative (NEGATIVE) Urine Bilirubin Negative (NEGATIVE) Urine Urobilinogen 0.2 (0.2-1.0) EU/dL Ur Leukocyte Esterase Trace H (NEGATIVE) Urine RBC Not seen (0-5) Urine WBC 0-5 (0-5) Ur Epithelial Cells Few Amorphous Sediment Few Urine Bacteria Not seen Urine Mucus Not seen 09/25/19 09/25/19 09/25/19 Range/Units 17:00 17:07 23:58 WBC (4.5-11.0) K/uL RBC (3.30-5.50) M/uL Hgb (12.0-15.0) g/dL Hct (36.0-48.0) % MCV (80-98) fL MCH (27-31) pg MCHC (32-36) % Plt Count (150-400) K/uL Neut % (Auto) (36-66) % Lymph % (Auto) (24-44) % Cassia % (Auto) (2-6) % Eos % (Auto) (2-4) % Baso % (Auto) (0-1) % PT (9.5-12.0) sec INR (0.80-1.20) APTT 78.6 H (27.0-36.0) sec D-Dimer, Quantitative (0.0-400.0) ng/mL Sodium (140-148) mmol/L Potassium (3.6-5.2) mmol/L Chloride (100-108) mmol/L Carbon Dioxide (21-32) mmol/L Anion Gap (5.0-14.0) mmol/L BUN (7-18) mg/dL Creatinine (0.6-1.0) mg/dL Est Cr Clr Drug Dosing mL/min Estimated GFR (MDRD) (>60) Glucose (74-106) mg/dL Calcium (8.5-10.1) mg/dL Total Bilirubin (0.2-1.0) mg/dL AST (15-37) U/L ALT (12-78) U/L Alkaline Phosphatase (46-116) U/L Troponin I (0.000-0.056) ng/mL NT-Pro-B Natriuret Pep 5889 H (5-125) pg/mL Total Protein (6.4-8.2) g/dL Albumin (3.4-5.0) g/dL Globulin (2.3-3.5) g/dL Albumin/Globulin Ratio (1.2-2.2) Free T3 3.85 (2.18-3.98) pg/dL TSH, Ultra Sensitive (0.358-3.740) uIU/mL Urine Color (YELLOW) Urine Appearance (CLEAR) Urine pH (5.0-8.0) Ur Specific [place] (1.008-1.030) Urine Protein (NEGATIVE) mg/dL Urine Glucose (UA) (NEGATIVE) mg/dL Urine Ketones (NEGATIVE) mg/dL Urine Occult Blood (NEGATIVE) Urine Nitrite (NEGATIVE) Urine Bilirubin (NEGATIVE) Urine Urobilinogen (0.2-1.0) EU/dL Ur Leukocyte Esterase (NEGATIVE) Urine RBC (0-5) Urine WBC (0-5) Ur Epithelial Cells Amorphous Sediment Urine Bacteria Urine Mucus 09/26/19 09/26/19 09/26/19 Range/Units 06:25 06:25 06:25 WBC 9.7 (4.5-11.0) K/uL RBC 4.15 (3.30-5.50) M/uL Hgb 12.8 (12.0-15.0) g/dL Hct 39.6 (36.0-48.0) % MCV 95 (80-98) fL MCH 31 (27-31) pg MCHC 32 (32-36) % Plt Count 324 (150-400) K/uL Neut % (Auto) (36-66) % Lymph % (Auto) (24-44) % Cassia % (Auto) (2-6) % Eos % (Auto) (2-4) % Baso % (Auto) (0-1) % PT (9.5-12.0) sec INR (0.80-1.20) APTT 49.7 H (27.0-36.0) sec D-Dimer, Quantitative (0.0-400.0) ng/mL Sodium 141 (140-148) mmol/L Potassium 4.0 (3.6-5.2) mmol/L Chloride 108 (100-108) mmol/L Carbon Dioxide 23 (21-32) mmol/L Anion Gap 10.5 (5.0-14.0) mmol/L BUN 15 (7-18) mg/dL Creatinine 1.0 (0.6-1.0) mg/dL Est Cr Clr Drug Dosing 39.63 mL/min Estimated GFR (MDRD) 54 L (>60) Glucose 101 (74-106) mg/dL Calcium 8.4 L (8.5-10.1) mg/dL Total Bilirubin (0.2-1.0) mg/dL AST (15-37) U/L ALT (12-78) U/L Alkaline Phosphatase (46-116) U/L Troponin I (0.000-0.056) ng/mL NT-Pro-B Natriuret Pep (5-125) pg/mL Total Protein (6.4-8.2) g/dL Albumin (3.4-5.0) g/dL Globulin (2.3-3.5) g/dL Albumin/Globulin Ratio (1.2-2.2) Free T3 (2.18-3.98) pg/dL TSH, Ultra Sensitive (0.358-3.740) uIU/mL Urine Color (YELLOW) Urine Appearance (CLEAR) Urine pH (5.0-8.0) Ur Specific [place] (1.008-1.030) Urine Protein (NEGATIVE) mg/dL Urine Glucose (UA) (NEGATIVE) mg/dL Urine Ketones (NEGATIVE) mg/dL Urine Occult Blood (NEGATIVE) Urine Nitrite (NEGATIVE) Urine Bilirubin (NEGATIVE) Urine Urobilinogen (0.2-1.0) EU/dL Ur Leukocyte Esterase (NEGATIVE) Urine RBC (0-5) Urine WBC (0-5) Ur Epithelial Cells Amorphous Sediment Urine Bacteria Urine Mucus Med Orders - Current: Current Medications Acetaminophen (Tylenol) 650 mg PO Q4H PRN PRN Reason: Pain (Mild 1-3)/fever Albuterol (Proventil Neb Soln) 2.5 mg NEB Q4H PRN PRN Reason: Shortness Of Breath/wheezing Aspirin (Halfprin) 81 mg PO DAILY [facility] Last Admin: 09/26/19 08:36 Dose: 81 mg Atenolol (Tenormin) 25 mg PO DAILY [facility] Last Admin: 09/26/19 08:36 Dose: 25 mg Heparin Sodium/Dextrose (Heparin 25,000 Units In D5w 500 Ml) 25,000 units in 500 mls @ 20.304 mls/hr IV TITRATE T[facility]ZIN; Protocol Last Titration: 09/26/19 07:05 Dose: 18 units/kg/hr, 20.304 mls/hr Sodium Chloride (Normal Saline) 1,000 mls @ 25 mls/hr IV ASDIRECTED [facility] Last Admin: 09/25/19 21:33 Dose: 25 mls/hr Lorazepam (Ativan) 0.5 mg IVPUSH Q4H PRN PRN Reason: Nausea/Vomiting Magnesium Hydroxide (Milk Of Magnesia) 30 ml PO Q12H PRN PRN Reason: Constipation Melatonin (Melatonin) 9 mg PO BEDTIME PRN PRN Reason: sleep Ondansetron HCl (Zofran Odt) 4 mg PO Q6H PRN PRN Reason: Nausea able to take PO Ondansetron HCl (Zofran) 4 mg IV Q6H PRN PRN Reason: Nausea/Vomiting Senna/Docusate Sodium (Senna Plus) 1 tab PO BID PRN PRN Reason: Constipation Sodium Chloride (Saline Flush) 10 ml FLUSH ASDIRECTED PRN PRN Reason: Keep Vein Open Last Admin: 09/25/19 17:14 Dose: 10 ml Discontinued Medications Heparin Sodium (Porcine) (Heparin Sodium) 4,500 units IVPUSH .BOLUS ONE Stop: 09/25/19 17:49 Last Admin: 09/25/19 18:01 Dose: 4,500 units Heparin Sodium (Porcine) (Heparin Sodium) Confirm Administered Dose 5,000 units .ROUTE .STK-MED ONE Stop: 09/26/19 07:04 Last Admin: 09/26/19 07:17 Dose: Not Given Heparin Sodium (Porcine) (Heparin Sodium) 1,000 units IVPUSH .BOLUS ONE Stop: 09/26/19 07:08 Last Admin: 09/26/19 07:23 Dose: 1,000 units Sodium Chloride (Normal Saline) 100 mls @ 3 mls/sec IV ASDIRECTED [facility] Last Admin: 09/25/19 17:14 Dose: 3 mls/sec Iopamidol (Isovue-370 (76%)) 100 ml IV . DIRECTED [facility] Last Admin: 09/25/19 17:20 Dose: 100 ml - Exam Quality Assessment: No: Supplemental Oxygen General: Alert, Oriented, Cooperative, No Acute Distress Lungs: Normal Respiratory Effort Cardiovascular: Regular Rate, Regular Rhythm GI/Abdominal Exam: Soft, No Distention Extremities: No Pedal Edema Psy/Mental Status: Alert, Normal Affect Sepsis Event Note - Evaluation Sepsis Screening Result: No Definite Risk - Focused Exam Vital Signs: Vital Signs Temp Pulse Pulse Resp BP BP Pulse Ox 09/26/19 08:36 91 127/82 09/26/19 08:00 36.2 C 82 24 H 127/82 93 L 09/26/19 06:00 24 H 135/91 H 92 L 09/26/19 04:00 36.4 C 24 H 134/84 91 L 09/26/19 02:00 22 H 139/84 92 L 09/26/19 00:00 37.1 C 23 H 133/93 H 92 L 09/25/19 22:00 22 H 128/83 93 L Date Exam was Performed: 09/26/19 Time Exam was Performed: 14:58 - Problem List & Annotations (1) Pulmonary emboli SNOMED Code(s): 50059096 Code(s): I26.99 - OTHER PULMONARY EMBOLISM WITHOUT ACUTE COR PULMONALE Status: Acute Current Visit: Yes Qualifiers: Pulmonary embolism type: multiple subsegmental (without acute cor pulmonale) Qualified Code(s): I26.94 - Multiple subsegmental pulmonary emboli without acute cor pulmonale (2) Hyperthyroidism SNOMED Code(s): 73222060 Code(s): E05.90 - THYROTOXICOSIS, UNSP WITHOUT THYROTOXIC CRISIS OR STORM Status: Acute Current Visit: Yes - Problem List Review Problem List Initiated/Reviewed/Updated: Yes - My Orders Last 24 Hours: My Active Orders 09/25/19 18:00 Heparin Sodium/D5W [Heparin 25,000 Units in D5W 500 ML] 25,000 units in 500 ml IV TITRATE 09/25/19 18:18 Resuscitation Status Routine 09/25/19 18:31 Patient Status [ADT] Routine Bedrest Bathroom Privileges [RC] ASDIRECTED Cardiac Monitoring [RC] CONTINUOUS Intake and Output [RC] QSHIFT Notify Provider Vital Signs [RC] ASDIRECTED Oxygen Therapy [RC] PRN Pulse Oximetry [RC] CONTINUOUS RT Aerosol Therapy [RC] ASDIRECTED Vital Signs [RC] Q2HR Acetaminophen [Tylenol] 650 mg PO Q4H PRN Albuterol [Proventil Neb Soln] 2.5 mg NEB Q4H PRN Docusate Sodium/Sennosides [Senna Plus] 1 tab PO BID PRN LORazepam [Ativan] 0.5 mg IVPUSH Q4H PRN Magnesium Hydroxide [Milk of Magnesia] 30 ml PO Q12H PRN Melatonin 9 mg PO BEDTIME PRN Ondansetron [Zofran ODT] 4 mg PO Q6H PRN Ondansetron [Zofran] 4 mg IV Q6H PRN Sodium Chloride 0.9% [Normal Saline] 1,000 ml IV ASDIRECTED 09/25/19 Dinner Regular Diet [DIET] 09/26/19 09:00 Aspirin [Halfprin] 81 mg PO DAILY atenoloL [Tenormin] 25 mg PO DAILY 09/26/19 13:00 PTT,PARTIAL THROMBOPLSTIN TIME [COAG] Routine - Plan Plan:: ASSESSMENT AND PLAN - Bilateral pulmonary emboli-complicated by evidence for right heart strain on CT scan. Clinically doing well. Still borderline tachycardic but otherwise her vital signs are stable. -Heparin infusion per protocol until Monday afternoon -Transition to rivaroxaban Monday, plan for 6 months of therapy -Cardiac monitoring -Pulse oximetry Hypothyroidism-very recently diagnosed and work-up is still in progress. Outpatient records will need to be reviewed to see if there is additional work- up necessary during the hospital stay. She does not have significant symptoms at this time other than a tremor. -Continue beta-miladys Maintenance issues - - DVT prophylaxis -heparin infusion - GI prophylaxis -not indicated - Nutrition -regular diet Disposition -I would anticipate discharge home after the hospital stay Primary care physician -Dr. Kateryna Diaz M.D.
[2019-09-26] MEDS: Heparin Sodium/D5W 25,000 UNITS/500 ML BAG IV SCH (19:31)
[2019-09-27] MEDS: Aspirin 81 MG Tab.EC PO SCH (08:04)
[2019-09-27] MEDS: Atenolol 25 MG Tab PO SCH (08:04)
--- NOTE | 2019-09-27 09:50 | PCM.PN ---
- General Info Date of Service: 09/27/19 Subjective Update: No acute events overnight. Heart rate has slowly improved and is now in the 70s. She does still have some dyspnea with exertion but this seems to be getting better. She has not had any chest pain. No bleeding issues with the heparin infusion. No fevers. Functional Status: Reports: Pain Controlled, Tolerating Diet - Review of Systems Cardiovascular: Reports: Dyspnea on Exertion - Patient Data Vitals - Most Recent: Last Vital Signs Temp 36.6 C 09/27/19 06:00 Pulse 87 09/27/19 08:04 Resp 22 H 09/27/19 06:00 BP 127/87 09/27/19 08:04 Pulse Ox 95 09/27/19 06:00 Orthostatic Blood Pressure [ 147/90 Standing] Orthostatic Blood Pressure [ 139/92 Sitting] Orthostatic Blood Pressure [ 145/90 Supine] Weight - Most Recent: 59.421 kg I&O - Last 24 Hours: Intake & Output 09/26/19 09/27/19 09/27/19 22:59 06:59 14:59 Intake Total 1357 Output Total 200 250 Balance 1157 -250 Lab Results Last 24 Hours: Laboratory Results - last 24 hr 09/26/19 09/26/19 09/27/19 Range/Units 13:10 19:08 07:00 APTT 55.9 H 58.0 H 49.3 H (27.0-36.0) sec Med Orders - Current: Current Medications Acetaminophen (Tylenol) 650 mg PO Q4H PRN PRN Reason: Pain (Mild 1-3)/fever Albuterol (Proventil Neb Soln) 2.5 mg NEB Q4H PRN PRN Reason: Shortness Of Breath/wheezing Aspirin (Halfprin) 81 mg PO DAILY [facility] Last Admin: 09/27/19 08:04 Dose: 81 mg Atenolol (Tenormin) 25 mg PO DAILY [facility] Last Admin: 09/27/19 08:04 Dose: 25 mg Heparin Sodium/Dextrose (Heparin 25,000 Units In D5w 500 Ml) 25,000 units in 500 mls @ 20.304 mls/hr IV TITRATE T[facility]ZIN; Protocol Last Titration: 09/27/19 07:44 Dose: 20 units/kg/hr, 22.56 mls/hr Sodium Chloride (Normal Saline) 1,000 mls @ 25 mls/hr IV ASDIRECTED [facility] Last Admin: 09/25/19 21:33 Dose: 25 mls/hr Lorazepam (Ativan) 0.5 mg IVPUSH Q4H PRN PRN Reason: Nausea/Vomiting Magnesium Hydroxide (Milk Of Magnesia) 30 ml PO Q12H PRN PRN Reason: Constipation Melatonin (Melatonin) 9 mg PO BEDTIME PRN PRN Reason: sleep Ondansetron HCl (Zofran Odt) 4 mg PO Q6H PRN PRN Reason: Nausea able to take PO Ondansetron HCl (Zofran) 4 mg IV Q6H PRN PRN Reason: Nausea/Vomiting Senna/Docusate Sodium (Senna Plus) 1 tab PO BID PRN PRN Reason: Constipation Sodium Chloride (Saline Flush) 10 ml FLUSH ASDIRECTED PRN PRN Reason: Keep Vein Open Last Admin: 09/25/19 17:14 Dose: 10 ml Discontinued Medications Heparin Sodium (Porcine) (Heparin Sodium) 4,500 units IVPUSH .BOLUS ONE Stop: 09/25/19 17:49 Last Admin: 09/25/19 18:01 Dose: 4,500 units Heparin Sodium (Porcine) (Heparin Sodium) Confirm Administered Dose 5,000 units .ROUTE .STK-MED ONE Stop: 09/26/19 07:04 Last Admin: 09/26/19 07:17 Dose: Not Given Heparin Sodium (Porcine) (Heparin Sodium) 1,000 units IVPUSH .BOLUS ONE Stop: 09/26/19 07:08 Last Admin: 09/26/19 07:23 Dose: 1,000 units Sodium Chloride (Normal Saline) 100 mls @ 3 mls/sec IV ASDIRECTED [facility] Last Admin: 09/25/19 17:14 Dose: 3 mls/sec Iopamidol (Isovue-370 (76%)) 100 ml IV . DIRECTED [facility] Last Admin: 09/25/19 17:20 Dose: 100 ml - Exam Quality Assessment: No: Supplemental Oxygen General: Alert, Oriented, Cooperative, No Acute Distress Lungs: Normal Respiratory Effort Cardiovascular: Regular Rate, Regular Rhythm GI/Abdominal Exam: Soft, No Distention Extremities: No Pedal Edema Psy/Mental Status: Alert, Normal Affect Sepsis Event Note - Evaluation Sepsis Screening Result: No Definite Risk - Focused Exam Vital Signs: Vital Signs Temp Pulse Pulse Resp BP BP Pulse Ox 09/27/19 08:04 87 127/87 09/27/19 06:00 36.6 C 75 22 H 132/85 95 09/27/19 04:00 74 25 H 136/84 96 09/27/19 02:00 74 20 130/87 96 09/27/19 00:00 72 23 H 139/87 94 L 09/26/19 23:30 09/26/19 22:00 79 22 H 117/77 93 L Pulse Ox 09/27/19 08:04 09/27/19 06:00 09/27/19 04:00 09/27/19 02:00 09/27/19 00:00 09/26/19 23:30 94 L 09/26/19 22:00 Date Exam was Performed: 09/27/19 Time Exam was Performed: 13:35 - Problem List & Annotations (1) Pulmonary emboli SNOMED Code(s): 66767674 Code(s): I26.99 - OTHER PULMONARY EMBOLISM WITHOUT ACUTE COR PULMONALE Status: Acute Current Visit: Yes Qualifiers: Pulmonary embolism type: multiple subsegmental (without acute cor pulmonale) Qualified Code(s): I26.94 - Multiple subsegmental pulmonary emboli without acute cor pulmonale (2) Hyperthyroidism SNOMED Code(s): 31422517 Code(s): E05.90 - THYROTOXICOSIS, UNSP WITHOUT THYROTOXIC CRISIS OR STORM Status: Acute Current Visit: Yes - Problem List Review Problem List Initiated/Reviewed/Updated: Yes - My Orders Last 24 Hours: My Active Orders 09/26/19 09:00 Aspirin [Halfprin] 81 mg PO DAILY atenoloL [Tenormin] 25 mg PO DAILY 09/27/19 14:00 PTT,PARTIAL THROMBOPLSTIN TIME [COAG] Routine 09/27/19 19:00 Rivaroxaban [Xarelto] 15 mg PO BID 09/28/19 05:00 BASIC METABOLIC PANEL,BMP [CHEM] Timed CBC W/O DIFF,HEMOGRAM [HEME] Timed (1) - Plan Plan:: ASSESSMENT AND PLAN - Bilateral pulmonary emboli-complicated by evidence for right heart strain on CT scan. Clinically doing well and heart rate slowly improving. -Heparin infusion per protocol until 5 PM tonight -Transition to rivaroxaban this evening (15 mg BIDx20 days then 20 mg daily x5 months) -Discontinue cardiac monitoring and pulse oximetry Hypothyroidism-very recently diagnosed and work-up is still in progress. Outpatient records will need to be reviewed to see if there is additional work- up necessary during the hospital stay. She does not have significant symptoms at this time other than a tremor. -Continue beta-miladys Maintenance issues - - DVT prophylaxis -heparin infusion - GI prophylaxis -not indicated - Nutrition -regular diet Disposition -I would anticipate discharge home after the hospital stay Primary care physician -Dr. Kateryna Diaz M.D.
[2019-09-27] MEDS ORDERED: Rivaroxaban 15 MG Tab PO SCH (10:30)
[2019-09-27] MEDS ORDERED: Rivaroxaban 15 MG Tab PO ONE (19:00)
[2019-09-28] MEDS: Atenolol 25 MG Tab PO SCH (08:12)
[2019-09-28] MEDS: Rivaroxaban 15 MG Tab PO SCH ×2 (08:12→20:53)
[2019-09-28] MEDS: Aspirin 81 MG Tab.EC PO SCH (08:12)
--- NOTE | 2019-09-28 13:47 | PCM.PN ---
- General Info Date of Service: 09/28/19 Subjective Update: No acute events overnight. Vital signs have been stable. She tolerated the transition to oral anticoagulation yesterday. No bleeding issues. No shortness of breath at rest but she does have dyspnea with exertion. She has not had any chest pain. She does feel a little lightheaded after she has been up and walking around. - Review of Systems Cardiovascular: Reports: Dyspnea on Exertion. Denies: Chest Pain - Patient Data Vitals - Most Recent: Last Vital Signs Temp 37.3 C 09/28/19 10:25 Pulse 69 09/28/19 10:25 Resp 16 09/28/19 10:25 BP 125/74 09/28/19 10:25 Pulse Ox 94 L 09/28/19 10:25 Orthostatic Blood Pressure [ 147/90 Standing] Orthostatic Blood Pressure [ 139/92 Sitting] Orthostatic Blood Pressure [ 145/90 Supine] Weight - Most Recent: 59.421 kg I&O - Last 24 Hours: Intake & Output 09/27/19 09/28/19 09/28/19 22:59 06:59 14:59 Intake Total 500 360 Balance 500 360 Lab Results Last 24 Hours: Laboratory Results - last 24 hr 09/27/19 09/28/19 09/28/19 Range/Units 13:52 04:15 04:15 WBC 10.2 (4.5-11.0) K/uL RBC 4.12 (3.30-5.50) M/uL Hgb 12.9 (12.0-15.0) g/dL Hct 39.9 (36.0-48.0) % MCV 97 (80-98) fL MCH 31 (27-31) pg MCHC 32 (32-36) % Plt Count 326 (150-400) K/uL APTT 60.4 H (27.0-36.0) sec Sodium 142 (140-148) mmol/L Potassium 4.3 (3.6-5.2) mmol/L Chloride 109 H (100-108) mmol/L Carbon Dioxide 26 (21-32) mmol/L Anion Gap 11.3 (5.0-14.0) mmol/L BUN 11 (7-18) mg/dL Creatinine 1.1 H (0.6-1.0) mg/dL Est Cr Clr Drug Dosing 36.02 mL/min Estimated GFR (MDRD) 49 L (>60) Glucose 94 (74-106) mg/dL Calcium 8.4 L (8.5-10.1) mg/dL Med Orders - Current: Current Medications Acetaminophen (Tylenol) 650 mg PO Q4H PRN PRN Reason: Pain (Mild 1-3)/fever Albuterol (Proventil Neb Soln) 2.5 mg NEB Q4H PRN PRN Reason: Shortness Of Breath/wheezing Aspirin (Halfprin) 81 mg PO DAILY [facility] Last Admin: 09/28/19 08:12 Dose: 81 mg Lorazepam (Ativan) 0.5 mg IVPUSH Q4H PRN PRN Reason: Nausea/Vomiting Magnesium Hydroxide (Milk Of Magnesia) 30 ml PO Q12H PRN PRN Reason: Constipation Melatonin (Melatonin) 9 mg PO BEDTIME PRN PRN Reason: sleep Ondansetron HCl (Zofran Odt) 4 mg PO Q6H PRN PRN Reason: Nausea able to take PO Ondansetron HCl (Zofran) 4 mg IV Q6H PRN PRN Reason: Nausea/Vomiting Rivaroxaban (Xarelto) 15 mg PO BID [facility] Last Admin: 09/28/19 08:12 Dose: 15 mg Senna/Docusate Sodium (Senna Plus) 1 tab PO BID PRN PRN Reason: Constipation Sodium Chloride (Saline Flush) 10 ml FLUSH ASDIRECTED PRN PRN Reason: Keep Vein Open Last Admin: 09/25/19 17:14 Dose: 10 ml Discontinued Medications Atenolol (Tenormin) 25 mg PO DAILY [facility] Last Admin: 09/28/19 08:12 Dose: 25 mg Heparin Sodium (Porcine) (Heparin Sodium) 4,500 units IVPUSH .BOLUS ONE Stop: 09/25/19 17:49 Last Admin: 09/25/19 18:01 Dose: 4,500 units Heparin Sodium (Porcine) (Heparin Sodium) Confirm Administered Dose 5,000 units .ROUTE .STK-MED ONE Stop: 09/26/19 07:04 Last Admin: 09/26/19 07:17 Dose: Not Given Heparin Sodium (Porcine) (Heparin Sodium) 1,000 units IVPUSH .BOLUS ONE Stop: 09/26/19 07:08 Last Admin: 05/07/20 07:23 Dose: 1,000 units Sodium Chloride (Normal Saline) 100 mls @ 3 mls/sec IV ASDIRECTED [facility] Last Admin: 09/25/19 17:14 Dose: 3 mls/sec Heparin Sodium/Dextrose (Heparin 25,000 Units In D5w 500 Ml) 25,000 units in 500 mls @ 20.304 mls/hr IV TITRATE [facility]; Protocol Stop: 09/27/19 17:00 Last Titration: 09/27/19 07:44 Dose: 20 units/kg/hr, 22.56 mls/hr Sodium Chloride (Normal Saline) 1,000 mls @ 25 mls/hr IV ASDIRECTED [facility] Stop: 09/27/19 17:00 Last Admin: 09/25/19 21:33 Dose: 25 mls/hr Iopamidol (Isovue-370 (76%)) 100 ml IV . DIRECTED [facility] Last Admin: 09/25/19 17:20 Dose: 100 ml Rivaroxaban (Xarelto) 15 mg PO ONETIME ONE Stop: 09/27/19 19:01 Last Admin: 09/27/19 18:04 Dose: 15 mg - Exam Quality Assessment: No: Supplemental Oxygen General: Alert, Oriented, Cooperative, No Acute Distress Lungs: Normal Respiratory Effort Cardiovascular: Regular Rate, Regular Rhythm GI/Abdominal Exam: Soft, No Distention Extremities: No Pedal Edema Psy/Mental Status: Alert, Normal Affect Sepsis Event Note - Evaluation Sepsis Screening Result: No Definite Risk - Focused Exam Vital Signs: Vital Signs Temp Pulse Pulse Resp BP BP Pulse Ox 09/28/19 10:25 37.3 C 69 16 125/74 94 L 09/28/19 08:12 82 146/82 H 09/28/19 06:51 37.1 C 77 16 146/82 H 92 L 09/28/19 02:40 37.4 C 73 16 120/82 90 L Date Exam was Performed: 09/28/19 Time Exam was Performed: 13:44 - Problem List & Annotations (1) Pulmonary emboli SNOMED Code(s): 51638714 Code(s): I26.99 - OTHER PULMONARY EMBOLISM WITHOUT ACUTE COR PULMONALE Status: Acute Current Visit: Yes Qualifiers: Pulmonary embolism type: multiple subsegmental (without acute cor pulmonale) Qualified Code(s): I26.94 - Multiple subsegmental pulmonary emboli without acute cor pulmonale (2) Hyperthyroidism SNOMED Code(s): 37267273 Code(s): E05.90 - THYROTOXICOSIS, UNSP WITHOUT THYROTOXIC CRISIS OR STORM Status: Acute Current Visit: Yes - Problem List Review Problem List Initiated/Reviewed/Updated: Yes - My Orders Last 24 Hours: My Active Orders 09/27/19 13:10 Transfer Patient (Change bed) [ADT] Routine 09/28/19 09:00 Rivaroxaban [Xarelto] 15 mg PO BID 09/29/19 09:00 atenoloL [Tenormin] 12.5 mg PO DAILY - Plan Plan:: ASSESSMENT AND PLAN - Bilateral pulmonary emboli-complicated by evidence for right heart strain on CT scan. Clinically doing well other than some persistent dyspnea with exertion and lightheadedness with exertion. -Continue rivaroxaban (15 mg BIDx20 days then 20 mg daily x5 months) -Discontinue cardiac monitoring and pulse oximetry Hypothyroidism-very recently diagnosed and work-up is still in progress. Low TSH, mildly elevated free T3 and normal free T4. Thyroid ultrasound showed 4 nodules, 2 of which need follow-up in 1 year. At this point I suspect an early multinodular goiter. Thyroid uptake scan would be the next step in work-up. -Continue beta-miladys with dose reduction because of lightheadedness -She will need an outpatient thyroid uptake scan Maintenance issues - - DVT prophylaxis -rivaroxaban - GI prophylaxis -not indicated - Nutrition -regular diet Disposition -I would anticipate discharge home after the hospital stay Primary care physician -Dr. Kateryna Diaz M.D.
[2019-09-29] MEDS ORDERED: Atenolol 25 MG Tab PO SCH (09:00)
[2019-09-29] MEDS: Aspirin 81 MG Tab.EC PO SCH (09:10)
[2019-09-29] MEDS: Rivaroxaban 15 MG Tab PO SCH (09:10)
--- NOTE | 2019-09-29 09:56 | PCM.DCSUM1 ---
Discharge Summary - Hospital Course Brief History: 73-year-old female who was recently diagnosed with a hyperthyroid state who presented with several weeks of progressive dyspnea and exertional chest pain. She was admitted for management of significant bilateral pulmonary emboli with evidence for right heart strain. Diagnosis: Stroke: No - Discharge Data Discharge Date: 09/29/19 Discharge Disposition: Home, Self-Care 01 Condition: Good - Referral to Home Health Primary Care Physician: PCP None - Discharge Diagnosis/Problem(s) (1) Pulmonary emboli SNOMED Code(s): 99222217 ICD Code: I26.99 - OTHER PULMONARY EMBOLISM WITHOUT ACUTE COR PULMONALE Status: Acute Qualifiers: Pulmonary embolism type: multiple subsegmental (without acute cor pulmonale) Qualified Code(s): I26.94 - Multiple subsegmental pulmonary emboli without acute cor pulmonale (2) Hyperthyroidism SNOMED Code(s): 49029062 ICD Code: E05.90 - THYROTOXICOSIS, UNSP WITHOUT THYROTOXIC CRISIS OR STORM Status: Acute - Patient Summary/Data Hospital Course: Marj presented to the emergency room with several weeks of progressive dyspnea as well as exertional chest pain. Work-up in the emergency room revealed an elevated d-dimer which prompted a CT scan looking for pulmonary emboli. The CT scan did document fairly extensive bilateral pulmonary emboli with evidence for right heart strain on the CT scan. Fortunately the patient had stable vital signs with only borderline tachycardia. She was not hypoxic. She was started on a heparin infusion and admitted to the hospital for further management. Over the next 48 hours she remained on the heparin infusion. We did see a slow trend towards improvement with a decreasing heart rate. Vital signs remained stable. She did not require supplemental oxygen other than briefly overnight. After 48 hours on the heparin infusion we transitioned her to rivaroxaban. She has tolerated the this anticoagulant well with no bleeding issues. Symptomatically she has improved slowly but steadily throughout the course of the hospital stay. She is now able to ambulate moderate distances without significant dyspnea and she has not had any chest pain since the heparin infusion was initiated. I suspect both the dyspnea and the chest pain were related to her significant clot burden rather than coronary artery occlusion. Clinically she is doing well and feels comfortable going home at this time. Vital signs have remained stable. She will complete a 21-day loading dose with the rivaroxaban before transitioning to a once daily dosing. When she has had adequate treatment for her pulmonary emboli a more complete blood investigation could be considered. There is no obvious cause or source for her to develop DVT/PE. Also discussed during the hospital stay was her hyperthyroid state. She has a nearly completely suppressed TSH and a mildly elevated free T3 but a normal free T4. She did have a thyroid ultrasound as an outpatient which showed several nodules and will need a follow-up ultrasound in 1 year. Toxic multinodular goiter could be considered versus less likely Graves' disease or potentially a thyroiditis. Thyroid uptake scan was discussed and she will be following up with her primary provider as an outpatient for further management. She is on atenolol. She has minimal symptoms of hyperthyroidism at this time. - Patient Instructions Diet: Regular Diet as Tolerated Activity: As Tolerated Activity, Other: Slowly advance your activity as tolerated Driving: May Drive Today Showering/Bathing: May Shower Notify Provider of: Fever, Increased Pain Other/Special Instructions: 1. You were in the hospital for management of bilateral pulmonary emboli. We did not determine a definite source for the emboli but your condition is improving with anticoagulant therapy. We have transitioned you to rivaroxaban (Xarelto). You should take 15 mg twice a day for 19 more days and after that you will take 20 mg once daily. The plan is for a total of 6 months of therapy. If you are feeling well at that time the medication can be discontinued as long as there are no other obvious reasons for you to continue taking it. 2. Continue your usual home medications as previously prescribed. 3. Follow up with Dr. Johnson as scheduled. You should discuss a thyroid uptake scan for further work-up of your hyperthyroid state. - Discharge Plan *PRESCRIPTION DRUG MONITORING PROGRAM REVIEWED*: Not Applicable *COPY OF PRESCRIPTION DRUG MONITORING REPORT IN PATIENT RIGO: Not Applicable Prescriptions/Med Rec: Rivaroxaban [Xarelto] 15 mg PO BID #38 tablet Rivaroxaban [Xarelto] 20 mg PO DAILY #30 tablet Home Medications: Home Meds Calcium Carbonate/Vitamin D3 [Calcium 600 + Vit D Tablet] 1,000 mg PO DAILY [History] Cranberry 1,000 mg PO Q48H 09/10/14 [History] Albuterol Sulfate [Albuterol Sulfate Hfa] 2 puff IH Q4HR 09/25/19 [History] Alendronate Sodium 10 mg PO DAILY 09/25/19 [History] Aspirin [Ecotrin EC] 81 mg PO DAILY 09/25/19 [History] atenoloL [Atenolol] 25 mg PO DAILY 09/25/19 [History] Rivaroxaban [Xarelto] 15 mg PO BID #38 tablet 09/29/19 [Rx] Rivaroxaban [Xarelto] 20 mg PO DAILY #30 tablet 09/29/19 [Rx] Oxygen Therapy Mode: Room Air Patient Handouts: Rivaroxaban oral tablets, Pulmonary Embolism Referrals: Kateryna Johnson MD [Ordering Only Provider] - 10/04/19 1:30 pm (Please arrive 15 minutes early to register for your appointment.) - Discharge Summary/Plan Comment DC Time >30 min.: No - Patient Data Vitals - Most Recent: Last Vital Signs Temp 36.7 C 09/29/19 06:56 Pulse 78 09/29/19 09:10 Resp 16 09/29/19 06:56 BP 150/83 H 09/29/19 09:10 Pulse Ox 92 L 09/29/19 06:56 Orthostatic Blood Pressure [ 147/90 Standing] Orthostatic Blood Pressure [ 139/92 Sitting] Orthostatic Blood Pressure [ 145/90 Supine] Weight - Most Recent: 59.421 kg I&O - Last 24 hours: Intake & Output 09/28/19 09/29/19 09/29/19 22:59 06:59 14:59 Intake Total 500 60 400 Balance 500 60 400 Med Orders - Current: Current Medications Acetaminophen (Tylenol) 650 mg PO Q4H PRN PRN Reason: Pain (Mild 1-3)/fever Albuterol (Proventil Neb Soln) 2.5 mg NEB Q4H PRN PRN Reason: Shortness Of Breath/wheezing Aspirin (Halfprin) 81 mg PO DAILY [facility] Last Admin: 09/29/19 09:10 Dose: 81 mg Atenolol (Tenormin) 12.5 mg PO DAILY [facility] Last Admin: 09/29/19 09:10 Dose: 12.5 mg Lorazepam (Ativan) 0.5 mg IVPUSH Q4H PRN PRN Reason: Nausea/Vomiting Magnesium Hydroxide (Milk Of Magnesia) 30 ml PO Q12H PRN PRN Reason: Constipation Melatonin (Melatonin) 9 mg PO BEDTIME PRN PRN Reason: sleep Ondansetron HCl (Zofran Odt) 4 mg PO Q6H PRN PRN Reason: Nausea able to take PO Ondansetron HCl (Zofran) 4 mg IV Q6H PRN PRN Reason: Nausea/Vomiting Rivaroxaban (Xarelto) 15 mg PO BID [facility] Last Admin: 09/29/19 09:10 Dose: 15 mg Senna/Docusate Sodium (Senna Plus) 1 tab PO BID PRN PRN Reason: Constipation Sodium Chloride (Saline Flush) 10 ml FLUSH ASDIRECTED PRN PRN Reason: Keep Vein Open Last Admin: 09/25/19 17:14 Dose: 10 ml Discontinued Medications Atenolol (Tenormin) 25 mg PO DAILY [facility] Last Admin: 09/28/19 08:12 Dose: 25 mg Heparin Sodium (Porcine) (Heparin Sodium) 4,500 units IVPUSH .BOLUS ONE Stop: 09/25/19 17:49 Last Admin: 09/25/19 18:01 Dose: 4,500 units Heparin Sodium (Porcine) (Heparin Sodium) Confirm Administered Dose 5,000 units .ROUTE .K-MED ONE Stop: 09/26/19 07:04 Last Admin: 09/26/19 07:17 Dose: Not Given Heparin Sodium (Porcine) (Heparin Sodium) 1,000 units IVPUSH .BOLUS ONE Stop: 09/26/19 07:08 Last Admin: 09/26/19 07:23 Dose: 1,000 units Sodium Chloride (Normal Saline) 100 mls @ 3 mls/sec IV ASDIRECTED [facility] Last Admin: 09/25/19 17:14 Dose: 3 mls/sec Heparin Sodium/Dextrose (Heparin 25,000 Units In D5w 500 Ml) 25,000 units in 500 mls @ 20.304 mls/hr IV TITRATE [facility]; Protocol Stop: 09/27/19 17:00 Last Titration: 09/27/19 07:44 Dose: 20 units/kg/hr, 22.56 mls/hr Sodium Chloride (Normal Saline) 1,000 mls @ 25 mls/hr IV ASDIRECTED [facility] Stop: 09/27/19 17:00 Last Admin: 09/25/19 21:33 Dose: 25 mls/hr Iopamidol (Isovue-370 (76%)) 100 ml IV . DIRECTED [facility] Last Admin: 09/25/19 17:20 Dose: 100 ml Rivaroxaban (Xarelto) 15 mg PO ONETIME ONE Stop: 09/27/19 19:01 Last Admin: 09/27/19 18:04 Dose: 15 mg - Exam Quality Assessment: Denies: Supplemental Oxygen General: Reports: Alert, Oriented, Cooperative, No Acute Distress Lungs: Reports: Normal Respiratory Effort Cardiovascular: Reports: Regular Rate, Regular Rhythm Extremities: No Pedal Edema
[2019-09-29 10:31] VITALS: BP 140/87; PULSE 66
== END 2019-09-29 11:27 | disposition home or self-care (01) | DRG 176 ==
LOC: JP.ED 15:30 → JP.ICU 18:17 → JP.MS 09-27 13:00
PROVIDERS: ADMIT Internal Medicine; ATTEND Internal Medicine
DX: I26.94 Multiple subsegmental thrombotic pulmonary emboli without acute cor pulmonale (principal); E05.20 Thyrotoxicosis with toxic multinodular goiter without thyrotoxic crisis or storm; I25.9 Chronic ischemic heart disease, unspecified; E05.90 Thyrotoxicosis, unspecified without thyrotoxic crisis or storm; R79.89 Other specified abnormal findings of blood chemistry; E86.0 Dehydration; Z86.010 Personal history of colon polyps; H54.7 Unspecified visual loss; I10 Essential (primary) hypertension; M81.0 Age-related osteoporosis without current pathological fracture; Z79.82 Long term (current) use of aspirin; Z79.899 Other long term (current) drug therapy
CPT/HCPCS: 36415; 71275; 80053; 81001; 83880; 84443; 84481; 84484; 85025; 85379; 85610; 85730; 93005; 96374; 99285; J1644 ×2; J7050; Q9967; 80048; 85027; 93010; A9270-GY; J7030

== ENCOUNTER 2024-01-21 10:45 | Observation (INO) | payer MEDICARE ==
[2024-01-21 11:51] LABS: HEMATOCRIT 40.8 % (34.3-46.0); HEMOGLOBIN 14.1 g/dL (11.2-15.5); MEAN CORPUSCULAR HEMOGLOBIN 33.1 pg (31.6-35.5); MEAN CORPUSCULAR HGB CONC 34.6 g/dL (31.6-35.5); MEAN CORPUSCULAR VOLUME 95.8 fL (81.4-99.0); PLATELET COUNT,PLT 438 K/uL (130-375); RED BLOOD CELL COUNT 4.26 M/uL (3.77-5.24); WHITE BLOOD CELL COUNT,WBC 14.9 K/uL (3.2-11.0)
[2024-01-21 11:52] LABS: APPEARANCE,URINE CLEAR (CLEAR); BILIRUBIN,URINE NEGATIVE (NEGATIVE); COLOR,URINE YELLOW (YELLOW); GLUCOSE,URINE NEGATIVE (NEGATIVE); KETONES,URINE NEGATIVE (NEGATIVE); LEUKOCYTE ESTERASE,URINE NEGATIVE (NEGATIVE); NITRITE,URINE NEGATIVE (NEGATIVE); OCCULT BLOOD,URINE TRACE-INTACT (NEGATIVE); PROTEIN,URINE NEGATIVE (NEGATIVE); UROBILINOGEN,URINE 0.2 EU/dL (0.2-1.0)
[2024-01-21 12:03] LABS: AMORPHOUS SEDIMENT,URINE RARE; BACTERIA,URINE NOT SEEN; EPITHELIAL CELLS,URINE NOT SEEN; MUCUS,URINE NOT SEEN; RBC,URINE NOT SEEN (0-5); WBC,URINE NOT SEEN (0-5)
[2024-01-21 12:13] LABS: A/G RATIO 0.9 (1.2-2.2); ALANINE AMINOTRANSFERASE,ALT 25 U/L (12-78); ALBUMIN 3.5 g/dL (3.4-5.0); ALKALINE PHOSPHATASE 86 U/L (46-116); ASPARTATE AMNIOTRANSFERASE,AST 21 U/L (15-37); BILIRUBIN TOTAL 0.6 mg/dL (0.2-1.0); BLOOD UREA NITROGEN,BUN 16 mg/dL (7-18); CALCIUM 9.6 mg/dL (8.5-10.1); CARBON DIOXIDE,CO2 28 mmol/L (21-32); CHLORIDE,CL 103 mmol/L (100-108); EST CRCL DRUG DOSING (CG) 36.67 mL/min; ESTIMATED GFR 58 mL/min (>60); GLUCOSE RANDOM 91 mg/dL (74-106); POTASSIUM,K 4.2 mmol/L (3.6-5.2); PROTEIN TOTAL,TP 7.4 g/dL (6.4-8.2); SODIUM,NA 139 mmol/L (140-148)
[2024-01-21 12:16] LABS: ANION GAP 12.2 mmol/L (5.0-14.0)
[2024-01-21 12:17] LABS: ATYPICAL LYMPHOCYTES FEW; BAND ABSOLUTE MAN 0.15 K/uL; BAND PERCENT MAN 1 % (5-11); EOSINOPHILS ABSOLUTE MAN 1.04 K/uL (0.00-0.40); EOSINOPHILS PERCENT MAN 7 % (2-4); LYMPHOCYTES ABSOLUTE MAN 1.64 K/uL (0.8-3.3); LYMPHOCYTES PERCENT MAN 11 % (24-44); MONOCYTES ABSOLUTE MAN 0.89 K/uL (0.20-0.90); MONOCYTES PERCENT MAN 6 % (2-6); NEUTROPHILS ABSOLUTE MAN 11.18 K/uL (1.0-7.6); SEG NEUTROPHILS PERCENT MAN 75 % (36-66)
[2024-01-21] MEDS: Sodium Chloride 0.9% 10 ML Syringe FLUSH PRN (15:01)
[2024-01-21] MEDS: Sodium Chloride 0.9% 100 ML IV SCH (15:01)
[2024-01-21] MEDS: Iopamidol 755 Mg/ML 100 ML Bottle IV SCH (15:01)
[2024-01-21] MEDS ORDERED: Sodium Chloride 0.9% 10 ML Syringe FLUSH PRN (16:54)
[2024-01-21] MEDS ORDERED: Ondansetron 4 MG/2 ML SDV IV PRN (16:54)
[2024-01-21] MEDS ORDERED: Acetaminophen 325 MG Tab PO PRN (16:54)
[2024-01-21] MEDS ORDERED: Polyethylene Glycol 3350 Powder 17 GM Packet PO PRN (16:54)
[2024-01-21] MEDS: Aspirin 81 MG Tab.EC PO SCH (17:38)
[2024-01-21] MEDS: Apixaban 5 MG Tab PO SCH (20:36)
[2024-01-21] MEDS: atorvaSTATin 20 MG Tab PO SCH (20:36)
[2024-01-22 06:08] LABS: HEMOGLOBIN 14.8 g/dL (11.2-15.5); MEAN CORPUSCULAR HGB CONC 34.4 g/dL (31.6-35.5); RED BLOOD CELL COUNT 4.48 M/uL (3.77-5.24); WHITE BLOOD CELL COUNT,WBC 14.9 K/uL (3.2-11.0)
[2024-01-22 06:29] LABS: CALCIUM 9.5 mg/dL (8.5-10.1); CREATININE 1.1 mg/dL (0.6-1.0); EST CRCL DRUG DOSING (CG) 31.81 mL/min; POTASSIUM,K 4.3 mmol/L (3.6-5.2)
[2024-01-22 06:48] LABS: ANION GAP 11.3 mmol/L (5.0-14.0)
[2024-01-22] MEDS ORDERED: Atenolol 25 MG Tab PO SCH (09:00)
[2024-01-22 11:00] VITALS: BP 117/74; PULSE 85
== END 2024-01-22 10:30 | disposition home or self-care (01) ==
LOC: JP.ED 10:45 → JP.MS 15:33
PROVIDERS: ADMIT Hospitalist; ATTEND Hospitalist
DX: G45.9 Transient cerebral ischemic attack, unspecified (principal); I26.94 Multiple subsegmental thrombotic pulmonary emboli without acute cor pulmonale; I10 Essential (primary) hypertension; R20.0 Anesthesia of skin; R20.2 Paresthesia of skin; Z79.82 Long term (current) use of aspirin; Z79.01 Long term (current) use of anticoagulants; Z79.899 Other long term (current) drug therapy
CPT/HCPCS: 36415; 70450; 70496; 70498; 80048; 80053; 80061; 81001; 85025; 85027; 93005; 99222; 99238; A9270; G0378; J3490; Q9967; 93010; 99283; 99285